=== PATIENT | male | born 1960 | race Caucasian/White ===

== ENCOUNTER 2020-02-23 09:00 | Outpatient (RCR) | payer OTHER, SELFPAY ==
[2020-02-04 11:27] VITALS: BP 129/71; PULSE 55; RESP 18; TEMP 36.6; BMI 39.2
--- NOTE | 2020-02-04 12:50 | PCM.WC.HP ---
(1) Ulcer of right lower extremity with fat layer exposed Status: Chronic Current Visit: Yes Code(s): L97.912 - Non-pressure chronic ulcer of unspecified part of right lower leg with fat layer exposed (2) Ulcer of left lower extremity with fat layer exposed Status: Chronic Current Visit: Yes Code(s): L97.922 - Non-pressure chronic ulcer of unspecified part of left lower leg with fat layer exposed (3) Chronic acquired lymphedema Status: Chronic Current Visit: Yes Code(s): I89.0 - Lymphedema, not elsewhere classified (4) Obesity (BMI 30-39.9) Status: Chronic Current Visit: Yes Code(s): E66.9 - Obesity, unspecified History of Present Illness Date of Service: 02/04/20 Chief Complaint: Bilateral lower extremity ulcers History of Wound: Mr. Chandler is a 59-year-old who presents to the wound center due to nonhealing bilateral lower extremity ulceration. Patient states that it is chronic however has noted worsening since May. Most significant worsening has been since October. Been staying at home due to the ongoing pandemic and has not been using his compression stockings like he typically did. Has applied no dressing as well. Reports drainage. Very largely sedentary and sleeps in a recliner. History of diabetes last A1c per record was 6.9. Feels well otherwise, denies chills, fever, nausea, vomiting or change in bowel habit. Started on clindamycin by his PCP but discontinued due to diarrhea. Past Medical History Past Medical History: Chronic Problems Ulcer of right lower extremity with fat layer exposed (Chronic) Ulcer of left lower extremity with fat layer exposed (Chronic) Chronic acquired lymphedema (Chronic) Obesity (BMI 30-39.9) (Chronic) Allergies/Adverse Reactions: Allergies No Known Allergies Allergy (Verified 02/04/20 11:18) Home Medications: Ambulatory Orders Medication Instructions Recorded Allopurinol [Zyloprim] 300 mg PO DAILY 02/04/20 Amlodipine [Norvasc] 10 mg PO DAILY 02/04/20 Atorvastatin Calcium [Lipitor] 10 mg PO QHS 02/04/20 Clonidine HCl 0.3 mg PO TID 02/04/20 Furosemide [Lasix] 40 mg PO DAILY 02/04/20 Linagliptin [Tradjenta] 5 mg PO DAILY 02/04/20 Losartan/Hydrochlorothiazide 1 tab PO DAILY 02/04/20 [Hyzaar 100-25 Tablet] Metformin HCl 1,000 mg PO BID 02/04/20 Metoprolol Succinate [Toprol Xl] 100 mg PO BID 02/04/20 [place]-3 Fatty Acids/Fish Oil [Fish 2 ea PO DAILY 02/04/20 Oil 1,000 mg Capsule] Quinapril HCl [Accupril] 40 mg PO DAILY 02/04/20 Spironolactone 25 mg PO BID 02/04/20 Smoking Status: Never smoker Review of Systems Constitutional: Denies: Anorexia, Weakness Eyes: Denies: Blurred vision, Pain, Redness HEENT: Denies: Difficulty Hearing, Difficulty Swallowing, Sinus Drainage, Sore Throat Cardiovascular: Denies: Chest Pain, Claudication, Chest Pressure, Chest Tightness Respiratory: Denies: Cough, Hemoptysis, Pleuritic Pain, Wheezing Gastrointestinal: Denies: Abdominal Pain, Hematemesis, Vomiting Genitourinary: Denies: Hematuria Skin: Denies: Jaundice - Physical Exam Vital Signs Temp Pulse Resp BP 98 F 55 L 18 129/71 H 02/04/20 11:27 02/04/20 11:27 02/04/20 11:27 02/04/20 11:27 General: Alert, Oriented x3, Cooperative, No apparent distress HEENT: Atraumatic, Normocephalic Oral: Moist Mucosa Neck: Supple Lungs: Normal air movement Abdomen: Non Tender, Obese Extremities: No cyanosis, Edema Skin: Ulcer/ Wound Wound Measurements and Assessment WC - Nurse 1 - General Ulcer Measurement Start: 02/04/20 11:16 Freq: Status: Active Protocol: Activity Type Activity Date Activity User E-Sign Co-Sign Detail Recorded Client Recorded Date Recorded By Document 02/04/20 11:27 [id number] 02/04/20 11:37 RB 02/04/20 11:27 Wound Center Nurse 1 [Ulcer Assessment] 2. RLE cluster -Combined with other wound No -Current Size (cm) - Length 35 -Current Size (cm) - Width 17 -Current Size (cm) - Depth 0.1 -Total Square Cm 595 -Photo Taken Yes -Tunneling No -Undermining/Tunneling No -Circular Undermining No -Exudate Amt Large -Exudate Type Serosanguineous -Wound Margin Thickened -Granulation Amt Medium (34-66%) -Granulation Quality [place] -Slough/Fibrin Yes -Necrosis Amt Medium (34-66%) -Necrotic Tissue Type Adherent Slough -Structure Exposed N/A -Texture (Chiquita-wound Skin Appearance) Assessed, Localized Edema -Moisture ([place]ita-wound Skin Appearance Assessed, ) Maceration -Color ([place]iquita-wound Skin Appearance) Assessed, Erythema -Temperature ([place]-wound Skin No Abnormality Appearance) (Pt Warm) -Tenderness on Palpation ([place]ita-wound No Skin Appearance) -Ulcer Cleansing Wound Cleanser -Foul Odor after Cleansing No -Anesthetic Used 4% Lidocaine Solution 1. LLE cluster -Combined with other wound No -Current Size (cm) - Length 35 -Current Size (cm) - Width 19 -Current Size (cm) - Depth 0.1 -Total Square Cm 665 -Photo Taken Yes -Tunneling No -Undermining/Tunneling No -Circular Undermining No -Exudate Amt Large -Exudate Type Serosanguineous -Wound Margin Thickened -Granulation Amt Medium (34-66%) -Granulation Quality [place] -Slough/Fibrin Yes -Necrosis Amt Small (1-33%) -Necrotic Tissue Type Adherent Slough -Structure Exposed N/A -Texture ([place]-wound Skin Appearance) Assessed, Localized Edema -Moisture ([place]-wound Skin Appearance Assessed, ) Maceration -Color ([place]-wound Skin Appearance) Assessed, Erythema, Hemosiderin Staining -Temperature ([place]-wound Skin No Abnormality Appearance) (Pt Warm) -Tenderness on Palpation ([place]iquita-wound No Skin Appearance) -Ulcer Cleansing Wound Cleanser -Foul Odor after Cleansing No -Anesthetic Used 4% Lidocaine Solution [Edema Assessment] -Lower Limb Edema Present Yes -Right Calf (cm) 51 -Right Ankle (cm) 39 -Right Foot (cm) 26 -Left Calf (cm) 58 -Left Ankle (cm) 39 -Left Foot (cm) 26 WC - Nurse 2 - General Ulcer CM Notes Start: 02/04/20 11:16 Freq: Status: Active Protocol: Activity Type Activity Date Activity User E-Sign Co-Sign Detail Recorded Client Recorded Date Recorded By Document 02/04/20 11:58 MW [id number] 02/04/20 12:11 MW 02/04/20 11:58 Wound Center Nurse 2 [Procedure/Treatment] 2. RLE cluster -Time 12:02 -Correct Patient Yes -Correct Side, Site, Position Yes -Correct Procedure Yes -Procedure Performed Yes -Type of Procedure Debridement -Clinical Debridement Subcutaneous -Post Debridement Size (cm) - Length 19.0 -Post Debridement Size (cm) - Width 35.0 -Post Debridement Size (cm) - Depth 0.1 -Total Square Cm 665.00 -Wound/Ulcer Outcome Not Healed -Ulcer Cleansing Rinsed/ Irrigated with Saline -Foul Odor after Cleansing No -Bioengineered Tissue No -Bleeding Controlled with Pressure -Offloading No -Treatment Response Procedure Tolerated Well 1. LLE cluster -Time 12:02 -Correct Patient Yes -Correct Side, Site, Position Yes -Correct Procedure Yes -Procedure Performed Yes -Type of Procedure Debridement -Clinical Debridement Subcutaneous -Post Debridement Size (cm) - Length 16.0 -Post Debridement Size (cm) - Width 30.0 -Post Debridement Size (cm) - Depth 0.1 -Total Square Cm 480.00 -Wound/Ulcer Outcome Not Healed -Ulcer Cleansing Rinsed/ Irrigated with Saline -Foul Odor after Cleansing No -Bioengineered Tissue No -Bleeding Controlled with Pressure -Offloading No -Treatment Response Procedure Tolerated Well [See Physician Procedure note for Specifics] Pain Scale: 0-10 Numeric [Pain] -Is Patient Pain Free? Yes Musculoskeletal: No Muscle Wasting Neurological: Cranial nerves II-XII grossly intact Psych/Mental Status: Normal Affect Debridement Note Post-Debridement Measurements/Treatment WC - Nurse 2 - General Ulcer CM Notes Start: 02/04/20 11:16 Freq: Status: Active Protocol: Activity Type Activity Date Activity User E-Sign Co-Sign Detail Recorded Client Recorded Date Recorded By Document 02/04/20 11:58 MW [id number] 02/04/20 12:11 MW 02/04/20 11:58 Wound Center Nurse 2 2. RLE cluster -Time 12:02 -Correct Patient Yes -Correct Side, Site, Position Yes -Correct Procedure Yes -Procedure Performed Yes -Type of Procedure Debridement -Clinical Debridement Subcutaneous -Post Debridement Size (cm) - Length 19.0 -Post Debridement Size (cm) - Width 35.0 -Post Debridement Size (cm) - Depth 0.1 -Total Square Cm 665.00 -Wound/Ulcer Outcome Not Healed -Ulcer Cleansing Rinsed/ Irrigated with Saline -Foul Odor after Cleansing No -Bioengineered Tissue No -Bleeding Controlled with Pressure -Offloading No -Treatment Response Procedure Tolerated Well 1. LLE cluster -Time 12:02 -Correct Patient Yes -Correct Side, Site, Position Yes -Correct Procedure Yes -Procedure Performed Yes -Type of Procedure Debridement -Clinical Debridement Subcutaneous -Post Debridement Size (cm) - Length 16.0 -Post Debridement Size (cm) - Width 30.0 -Post Debridement Size (cm) - Depth 0.1 -Total Square Cm 480.00 -Wound/Ulcer Outcome Not Healed -Ulcer Cleansing Rinsed/ Irrigated with Saline -Foul Odor after Cleansing No -Bioengineered Tissue No -Bleeding Controlled with Pressure -Offloading No -Treatment Response Procedure Tolerated Well Pain Scale: 0-10 Numeric Is Patient Pain Free? Yes Wound debrided: Right lower extremity cluster Type of Debridement: Excisional debridement Anesthesia Used: 4% Lidocaine Solution Depth: Down to and including healthy tissue, in the subcutaneous layer Percentage of wound debrided: 100 Instrument Used: 7mm curette Tissue Removed: Slough and devitalized tissue Severity: Fat Layer Exposed Amount of bleeding with debridement: Mild Patient tolerated procedure well - Additional Wound Wound debrided: Left lower extremity cluster Type of Debridement: Excisional debridement Anesthesia Used: 4% Lidocaine Solution Depth: Down to and including healthy tissue, in the subcutaneous layer Percentage of wound debrided: 100 Instrument Used: 7mm curette Tissue Removed: Slough and devitalized tissue Severity: Fat Layer Exposed Amount of bleeding with debridement: Mild Bleeding Controlled with: Pressure Patient tolerated procedure: Patient tolerated procedure well Assessment/Plan Active Problems Ulcer of right lower extremity with fat layer exposed (Chronic) Ulcer of left lower extremity with fat layer exposed (Chronic) Chronic acquired lymphedema (Chronic) Obesity (BMI 30-39.9) (Chronic) Assessment: Nonhealing bilateral lower extremity ulcer secondary to chronic lymphedema. Plan: Debridement done as documented above. Procedure was well-tolerated. Cultures taken. Aquacel extra to both lower extremities and 3M wrap for edema management. Lengthy discussion had with patient and leg elevation, exercise, increase protein intake and optimal diabetes control. His questions were answered and he was advised to call with any further questions or concerns. Follow-up on Saturday for nurse visit and on with me. This note was generated with [employer] software. It may contain incorrect words, spelling, and punctuation that were not noted in checking the note before signing. Multi Select Codes - Visit Charges Office Visit/Consults: 74533 OV L4 New - Integumentary Integumentary CPT Codes: 06900 Hallie subq tissue 20 sq cm/< - Additional square centimeter debrided. Please refer to clinical note.
[2020-02-08 08:36] VITALS: BP 118/88; PULSE 78; RESP 18; TEMP 36.6; BMI 39.2
[2020-02-11 08:22] VITALS: BP 127/61; PULSE 93; RESP 18; TEMP 36.6; BMI 39.2
--- NOTE | 2020-02-11 09:30 | PN.PCM_ITS ---
(1) Ulcer of right lower extremity with fat layer exposed Status: Chronic Current Visit: Yes Code(s): L97.912 - Non-pressure chronic ulcer of unspecified part of right lower leg with fat layer exposed (2) Ulcer of left lower extremity with fat layer exposed Status: Chronic Current Visit: Yes Code(s): L97.922 - Non-pressure chronic ulcer of unspecified part of left lower leg with fat layer exposed (3) Chronic acquired lymphedema Status: Chronic Current Visit: Yes Code(s): I89.0 - Lymphedema, not els ewhere classified (4) Obesity (BMI 30-39.9) Status: Chronic Current Visit: Yes Code(s): E66.9 - Obesity, unspecified Type of Wound Date of Service: 02/11/20 Chief Complaint: Bilateral lower extremity ulcers History of Wound: Mr. Chandler is a 59-year-old who presents to the wound center due to nonhealing bilateral lower extremity ulceration. Patient states that it is chronic however has noted worsening since May. Most significant worsening has been since October. Been staying at home due to the ongoing pandemic and has not been using his compression stockings like he typically did. Has applied no dressing as well. Reports drainage. Very largely sedentary and sleeps in a recliner. History of diabetes last A1c per record was 6.9. Feels well otherwise, denies chills, fever, nausea, vomiting or change in bowel habit. Started on clindamycin by his PCP but discontinued due to diarrhea. Progress of Wound: No new concerns. Tolerated 3M wraps. Edema with significant improvement. - Physical Exam Vital Signs Temp Pulse Resp BP 98 F 93 18 127/61 H 02/11/20 08:22 02/11/20 08:22 02/11/20 08:22 02/11/20 08:22 General: Alert, Oriented x3, Cooperative, No apparent distress HEENT: Atraumatic, Normocephalic Oral: Moist Mucosa Neck: Supple Lungs: Normal air movement Abdomen: Non Tender, Obese Extremities: No cyanosis, Edema Skin: Ulcer/ Wound Wound Measurements and Assessment WC - Nurse 1 - General Ulcer Measurement Start: 02/04/20 11:16 Freq: Status: Active Protocol: Activity Type Activity Date Activity User E-Sign Co-Sign Detail Recorded Client Recorded Date Recorded By Document 02/08/20 08:40 [id number] 02/08/20 08:44 CS Document 02/11/20 08:22 BS [id number] 02/11/20 08:32 BS 02/08/20 02/11/20 08:40 08:22 [Ulcer Assessment] 2. RLE cluster -Current Size (cm) - Length 41 -Current Size (cm) - Width 12 -Current Size (cm) - Depth 0.1 -Total Square Cm 492 -Photo Taken No -Exudate Amt Large -Exudate Type Yellow/Green -Wound Margin Indistinct, Non -Visible -Granulation Amt Medium (34-66%) -Granulation Quality [place],Red -Necrosis Amt Medium (34-66%) -Necrotic Tissue Type Adherent Slough -Structure Exposed N/A -Texture ([place]iquita-wound Skin Appearance) Excoriation -Moisture ([place]iquita-wound Skin Appearance Weeping ) -Color ([place]ita-wound Skin Appearance) Erythema, Hemosiderin Staining -Temperature ([place]-wound Skin No Abnormality Appearance) (Pt Warm) -Tenderness on Palpation ([place]-wound No Skin Appearance) -Ulcer Cleansing Wound Cleanser -Foul Odor after Cleansing Yes -Anesthetic Used 4% Lidocaine Solution 1. LLE cluster -Current Size (cm) - Length 40 -Current Size (cm) - Width 7.5 -Current Size (cm) - Depth 0.1 -Total Square Cm 300.0 -Photo Taken No -Exudate Amt Large -Exudate Type Yellow/Green -Wound Margin Indistinct, Non -Visible -Granulation Amt Medium (34-66%) -Granulation Quality [place] -Necrosis Amt Medium (34-66%) -Necrotic Tissue Type Adherent Slough -Structure Exposed N/A -Texture ([place]iquita-wound Skin Appearance) Excoriation -Moisture ([place]iquita-wound Skin Appearance Weeping ) -Color ([place]iquita-wound Skin Appearance) Erythema, Hemosiderin Staining -Temperature ([place]-wound Skin No Abnormality Appearance) (Pt Warm) -Tenderness on Palpation ([place]iquita-wound No Skin Appearance) -Ulcer Cleansing Wound Cleanser -Foul Odor after Cleansing Yes -Anesthetic Used 4% Lidocaine Solution Wound Center Nurse 1 [Edema Assessment] -Lower Limb Edema Present Yes -Right Calf (cm) 49.5 50 -Point of measurement (cm from the 33 medial instep) -Right Ankle (cm) 32.5 6 -Point of Measurement (cm from the 29.5 medial instep) -Left Calf (cm) 47.5 50.5 -Point of measurement (cm from the 35 medial instep) -Left Ankle (cm) 29.2 29.6 -Point of Measurement (cm from the 6 medial instep) Musculoskeletal: No Muscle Wasting Neurological: Cranial nerves II-XII grossly intact Psych/Mental Status: Normal Affect Debridement Note Post-Debridement Measurements/Treatment WC - Nurse 2 - General Ulcer CM Notes Start: 02/04/20 11:16 Freq: Status: Active Protocol: Activity Type Activity Date Activity User E-Sign Co-Sign Detail Recorded Client Recorded Date Recorded By Document 02/04/20 11:58 MW [id number] 02/04/20 12:11 MW 02/04/20 11:58 Wound Center Nurse 2 2. RLE cluster -Time 12:02 -Correct Patient Yes -Correct Side, Site, Position Yes -Correct Procedure Yes -Procedure Performed Yes -Type of Procedure Debridement -Clinical Debridement Subcutaneous -Post Debridement Size (cm) - Length 19.0 -Post Debridement Size (cm) - Width 35.0 -Post Debridement Size (cm) - Depth 0.1 -Total Square Cm 665.00 -Wound/Ulcer Outcome Not Healed -Ulcer Cleansing Rinsed/ Irrigated with Saline -Foul Odor after Cleansing No -Bioengineered Tissue No -Bleeding Controlled with Pressure -Offloading No -Treatment Response Procedure Tolerated Well 1. LLE cluster -Time 12:02 -Correct Patient Yes -Correct Side, Site, Position Yes -Correct Procedure Yes -Procedure Performed Yes -Type of Procedure Debridement -Clinical Debridement Subcutaneous -Post Debridement Size (cm) - Length 16.0 -Post Debridement Size (cm) - Width 30.0 -Post Debridement Size (cm) - Depth 0.1 -Total Square Cm 480.00 -Wound/Ulcer Outcome Not Healed -Ulcer Cleansing Rinsed/ Irrigated with Saline -Foul Odor after Cleansing No -Bioengineered Tissue No -Bleeding Controlled with Pressure -Offloading No -Treatment Response Procedure Tolerated Well Pain Scale: 0-10 Numeric Is Patient Pain Free? Yes Wound debrided: Left lower extremity cluster Type of Debridement: Excisional debridement Anesthesia Used: 4% Lidocaine Solution Depth: Down to and including healthy tissue, in the subcutaneous layer Percentage of wound debrided: 100 Instrument Used: 7mm curette Tissue Removed: Slough and devitalized tissue Severity: Fat Layer Exposed Amount of bleeding with debridement: Mild Bleeding Controlled with: Pressure Patient tolerated procedure well - Additional Wound Wound debrided: Right lower extremity cluster Type of Debridement: Excisional debridement Anesthesia Used: 4% Lidocaine Solution Depth: Down to and including healthy tissue, in the subcutaneous layer Percentage of wound debrided: 100 Instrument Used: 7mm curette Tissue Removed: Slough and devitalized tissue Severity: Fat Layer Exposed Amount of bleeding with debridement: Mild Bleeding Controlled with: Pressure Patient tolerated procedure: Patient tolerated procedure well Assessment/Plan Active Problems Ulcer of right lower extremity with fat layer exposed (Chronic) Ulcer of left lower extremity with fat layer exposed (Chronic) Chronic acquired lymphedema (Chronic) Obesity (BMI 30-39.9) (Chronic) Assessment: Nonhealing bilateral lower extremity ulcer secondary to chronic lymphedema. Plan: Debridement done as documented above. Procedure was well-tolerated. Improving. No new concerns today. Cultures reviewed, started on ciprofloxacin and Flagyl per sensitivity. Continue Aquacel, absorptive padding and 3M wraps. Follow-up on Saturday for nurse visit. Continue leg elevation, exercise as tolerated and optimal diabetes control. His questions were answered and he was advised to call with any further questions or concerns. Follow-up on Saturday for nurse visit and on with me. This note was generated with [employer] dictation software. It may contain incorrect words, spelling, and punctuation that were not noted in checking the note before signing. [id number]: [id number] Hallie subq tissue 20 sq cm/< Add On Codes: [id number] Hallie subq tissue add-on - Additional square centimeters debrided, please refer to clinical note.
[2020-02-15 10:46] VITALS: BP 125/72; PULSE 85; RESP 18; TEMP 36.6; BMI 39.2
[2020-02-18 10:03] VITALS: BP 124/71; PULSE 72; RESP 18; TEMP 36.4; BMI 39.2
--- NOTE | 2020-02-18 13:09 | PN.PCM_ITS ---
(1) Ulcer of right lower extremity with fat layer exposed Status: Chronic Current Visit: Yes Code(s): L97.912 - Non-pressure chronic ulcer of unspecified part of right lower leg with fat layer exposed (2) Ulcer of left lower extremity with fat layer exposed Status: Chronic Current Visit: Yes Code(s): L97.922 - Non-pressure chronic ulcer of unspecified part of left lower leg with fat layer exposed (3) Chronic acquired lymphedema Status: Chronic Current Visit: Yes Code(s): I89.0 - Lymphedema, not els ewhere classified (4) Obesity (BMI 30-39.9) Status: Chronic Current Visit: Yes Code(s): E66.9 - Obesity, unspecified Type of Wound Date of Service: 02/18/20 Chief Complaint: Bilateral lower extremity ulcers History of Wound: Mr. Chandler is a 59-year-old who presents to the wound center due to nonhealing bilateral lower extremity ulceration. Patient states that it is chronic however has noted worsening since May. Most significant worsening has been since October. Been staying at home due to the ongoing pandemic and has not been using his compression stockings like he typically did. Has applied no dressing as well. Reports drainage. Very largely sedentary and sleeps in a recliner. History of diabetes last A1c per record was 6.9. Feels well otherwise, denies chills, fever, nausea, vomiting or change in bowel habit. Started on clindamycin by his PCP but discontinued due to diarrhea. Progress of Wound: Improving. No new concerns at this time. - Physical Exam Vital Signs Temp Pulse Resp BP 97.6 F L 72 18 124/71 H 02/18/20 10:03 02/18/20 10:03 02/18/20 10:03 02/18/20 10:03 General: Alert, Oriented x3, Cooperative, No apparent distress HEENT: Atraumatic, Normocephalic Oral: Moist Mucosa Neck: Supple Lungs: Normal air movement Abdomen: Non Tender, Obese Extremities: No cyanosis, Edema Skin: Ulcer/ Wound Wound Measurements and Assessment WC - Nurse 1 - General Ulcer Measurement Start: 02/04/20 11:16 Freq: Status: Active Protocol: Activity Type Activity Date Activity User E-Sign Co-Sign Detail Recorded Client Recorded Date Recorded By Document 02/18/20 10:03 RB [id number] 02/18/20 10:11 02/18/20 10:03 Wound Center Nurse 1 [Ulcer Assessment] 2. RLE cluster -Combined with other wound No -Current Size (cm) - Length 3.4 -Current Size (cm) - Width 13.3 -Current Size (cm) - Depth 0.2 -Total Square Cm 45.22 -Tunneling No -Undermining/Tunneling No -Circular Undermining No -Exudate Amt Medium -Exudate Type Serosanguineous -Wound Margin Flat & Intact -Granulation Amt Medium (34-66%) -Granulation Quality [place] -Slough/Fibrin Yes -Necrosis Amt Medium (34-66%) -Necrotic Tissue Type Adherent Slough -Structure Exposed N/A -Texture (Chiquita-wound Skin Appearance) Assessed -Moisture (Chiquita-wound Skin Appearance Maceration,Dry/ ) Scaly -Color (Chiquita-wound Skin Appearance) Erythema -Temperature (Chiquita-wound Skin No Abnormality Appearance) (Pt Warm) -Tenderness on Palpation (Chiquita-wound No Skin Appearance) -Ulcer Cleansing Wound Cleanser -Foul Odor after Cleansing No -Anesthetic Used 4% Lidocaine Solution 1. LLE cluster -Combined with other wound No -Current Size (cm) - Length 9.5 -Current Size (cm) - Width 8.4 -Current Size (cm) - Depth 0.2 -Total Square Cm 79.80 -Tunneling No -Undermining/Tunneling No -Circular Undermining No -Exudate Amt Medium -Exudate Type Serosanguineous -Wound Margin Flat & Intact -Granulation Amt Medium (34-66%) -Granulation Quality [place] -Slough/Fibrin Yes -Necrosis Amt Small (1-33%) -Necrotic Tissue Type Adherent Slough -Structure Exposed N/A -Texture (Chiquita-wound Skin Appearance) Assessed -Moisture (Chiquita-wound Skin Appearance Assessed, ) Maceration,Dry/ Scaly -Color (Chiquita-wound Skin Appearance) Erythema -Temperature (Chiquita-wound Skin No Abnormality Appearance) (Pt Warm) -Tenderness on Palpation (Chiquita-wound No Skin Appearance) -Ulcer Cleansing Wound Cleanser -Foul Odor after Cleansing No -Anesthetic Used 4% Lidocaine Solution [Edema Assessment] -Lower Limb Edema Present Yes -Right Calf (cm) 47.8 -Right Ankle (cm) 31.1 -Left Calf (cm) 48 -Left Ankle (cm) 29.2 WC - Nurse 2 - General Ulcer CM Notes Start: 02/04/20 11:16 Freq: Status: Active Protocol: Activity Type Activity Date Activity User E-Sign Co-Sign Detail Recorded Client Recorded Date Recorded By Document 02/18/20 10:29 DV [id number] 02/18/20 10:35 DV 02/18/20 10:29 Wound Center Nurse 2 [Procedure/Treatment] 2. RLE cluster -Time 10:30 -Correct Patient Yes -Correct Side, Site, Position Yes -Correct Procedure Yes -Procedure Performed Yes -Type of Procedure Debridement -Clinical Debridement Subcutaneous -Post Debridement Size (cm) - Length 8.0 -Post Debridement Size (cm) - Width 15.0 -Post Debridement Size (cm) - Depth 0.1 -Total Square Cm 120.00 -Wound/Ulcer Outcome Not Healed -Ulcer Cleansing Rinsed/ Irrigated with Saline -Foul Odor after Cleansing No -Bioengineered Tissue No -Bleeding Controlled with Pressure -Offloading No -Treatment Response Procedure Tolerated Well 1. LLE cluster -Time 10:31 -Correct Patient Yes -Correct Side, Site, Position Yes -Correct Procedure Yes -Procedure Performed Yes -Type of Procedure Debridement -Clinical Debridement Subcutaneous -Post Debridement Size (cm) - Length 9.5 -Post Debridement Size (cm) - Width 14.0 -Post Debridement Size (cm) - Depth 0.1 -Total Square Cm 133.00 -Wound/Ulcer Outcome Not Healed -Ulcer Cleansing Rinsed/ Irrigated with Saline -Foul Odor after Cleansing No -Bioengineered Tissue No -Bleeding Controlled with Pressure -Offloading No -Treatment Response Procedure Tolerated Well [See Physician Procedure note for Specifics] Pain Scale: 0-10 Numeric [Pain] -Is Patient Pain Free? Yes Musculoskeletal: No Muscle Wasting Neurological: Cranial nerves II-XII grossly intact Psych/Mental Status: Normal Affect Debridement Note Post-Debridement Measurements/Treatment WC - Nurse 2 - General Ulcer CM Notes Start: 02/04/20 11:16 Freq: Status: Active Protocol: Activity Type Activity Date Activity User E-Sign Co-Sign Detail Recorded Client Recorded Date Recorded By Document 02/04/20 11:58 MW [id number] 02/04/20 12:11 MW Document 02/11/20 09:35 PL [id number] 02/11/20 09:37 PL Document 02/18/20 10:29 DV [id number] 02/18/20 10:35 DV 02/04/20 02/11/20 02/18/20 11:58 09:35 10:29 Wound Center Nurse 2 2. [facility] cluster -Time 12:02 08:40 10:30 -Correct Patient Yes Yes Yes -Correct Side, Site, Position Yes Yes Yes -Correct Procedure Yes Yes Yes -Procedure Performed Yes Yes Yes -Type of Procedure Debridement Debridement Debridement -Clinical Debridement Subcutaneous Subcutaneous Subcutaneous -Post Debridement Size (cm) - Length 19.0 10 8.0 -Post Debridement Size (cm) - Width 35.0 28 15.0 -Post Debridement Size (cm) - Depth 0.1 0.1 0.1 -Total Square Cm 665.00 280 120.00 -Wound/Ulcer Outcome Not Healed Not Healed Not Healed -Ulcer Cleansing Rinsed/ Rinsed/ Rinsed/ Irrigated with Irrigated with Irrigated with Saline Saline Saline -Foul Odor after Cleansing No No No -Bioengineered Tissue No No -Bleeding Controlled with Pressure Pressure Pressure -Offloading No No -Treatment Response Procedure Procedure Procedure Tolerated Well Tolerated Well Tolerated Well 1. [facility] cluster -Time 12: 08:40 10:31 -Correct Patient Yes Yes Yes -Correct Side, Site, Position Yes Yes Yes -Correct Procedure Yes Yes Yes -Procedure Performed Yes Yes Yes -Type of Procedure Debridement Debridement Debridement -Clinical Debridement Subcutaneous Subcutaneous Subcutaneous -Post Debridement Size (cm) - Length 16.0 10 9.5 -Post Debridement Size (cm) - Width 30.0 25 14.0 -Post Debridement Size (cm) - Depth 0.1 0.1 0.1 -Total Square Cm 480.00 250 133.00 -Wound/Ulcer Outcome Not Healed Not Healed Not Healed -Ulcer Cleansing Rinsed/ Rinsed/ Rinsed/ Irrigated with Irrigated with Irrigated with Saline Saline Saline -Foul Odor after Cleansing No No No -Bioengineered Tissue No No -Bleeding Controlled with Pressure Pressure Pressure -Offloading No No -Treatment Response Procedure Procedure Procedure Tolerated Well Tolerated Well Tolerated Well Pain Scale: 0-10 Numeric Is Patient Pain Free? Yes Yes Yes Wound debrided: Right lower extremity cluster Type of Debridement: Excisional debridement Anesthesia Used: 4% Lidocaine Solution Depth: Down to and including healthy tissue, in the subcutaneous layer Percentage of wound debrided: 100 Instrument Used: 7mm curette Tissue Removed: Slough and devitalized tissue Severity: Fat Layer Exposed Amount of bleeding with debridement: Mild Bleeding Controlled with: Pressure Patient tolerated procedure well - Additional Wound Wound debrided: Left lower extremity cluster Type of Debridement: Excisional debridement Anesthesia Used: 4% Lidocaine Solution Depth: Down to and including healthy tissue, in the subcutaneous layer Percentage of wound debrided: 100 Instrument Used: 5mm curette Tissue Removed: Slough and devitalized tissue Severity: Fat Layer Exposed Amount of bleeding with debridement: Mild Bleeding Controlled with: Pressure Patient tolerated procedure: Patient tolerated procedure well Assessment/Plan Active Problems Ulcer of right lower extremity with fat layer exposed (Chronic) Ulcer of left lower extremity with fat layer exposed (Chronic) Chronic acquired lymphedema (Chronic) Obesity (BMI 30-39.9) (Chronic) Assessment: Nonhealing bilateral lower extremity ulcer secondary to chronic lymphedema. Plan: Debridement done as documented above. Procedure was well-tolerated. Improving. No new concerns today. Continue Aquacel, ABD and 3M wraps. Follow- up on Saturday for nurse visit. Continue leg elevation, exercise as tolerated and optimal diabetes control. His questions were answered and he was advised to call with any further questions or concerns. Follow-up on Saturday for nurse visit and on with me. This note was generated with [employer] dictation software. It may contain incorrect words, spelling, and punctuation that were not noted in checking the note before signing. [id number]: [id number] Hallie subq tissue 20 sq cm/< Add On Codes: [id number] Hallie subq tissue add-on - Additional square centimeters debrided, please refer to clinical note.
[2020-02-23 09:16] VITALS: BP 146/88; PULSE 108; RESP 20; TEMP 36.2; BMI 39.2
== END 2020-02-23 23:59 ==
LOC: WC 09:00
PROVIDERS: PCP Family Medicine; Visit Provider Internal Medicine
DX: E11.621 Type 2 diabetes mellitus with foot ulcer (principal); L97.812 Non-pressure chronic ulcer of other part of right lower leg with fat layer exposed; E66.9 Obesity, unspecified; L97.822 Non-pressure chronic ulcer of other part of left lower leg with fat layer exposed; I89.0 Lymphedema, not elsewhere classified; Z68.39 Body mass index [BMI] 39.0-39.9, adult; Z79.899 Other long term (current) drug therapy; Z79.84 Long term (current) use of oral hypoglycemic drugs
CPT/HCPCS: 11042; 11045; 29581; 87070; 87075; 87077; 87186; 87205; 99203; 99212; 99213; G0463

== ENCOUNTER 2020-03-03 10:30 | Outpatient (RCR) | payer OTHER, SELFPAY ==
[2020-02-24 00:37] VITALS: BP 146/88; PULSE 108; RESP 20; TEMP 36.2
[2020-02-25 08:21] VITALS: BP 146/74; PULSE 97; RESP 20; TEMP 36.6; BMI 39.2
--- NOTE | 2020-02-25 10:09 | PCM.WC.PN ---
(1) Chronic acquired lymphedema Status: Chronic Current Visit: Yes Code(s): I89.0 - Lymphedema, not elsewhere classified (2) Ulcer of left lower extremity with fat layer exposed Status: Chronic Current Visit: Yes Code(s): L97.922 - Non-pressure chronic ulcer of unspecified part of left lower leg with fat layer exposed (3) Ulcer of right lower extremity with fat layer exposed Status: Chronic Current Visit: Yes Code(s): L97.912 - Non-pressure chronic ulcer of unspecified part of right lower leg with fat layer exposed (4) Obesity (BMI 30-39.9) Status: Chronic Current Visit: Yes Code(s): E66.9 - Obesity, unspecified Type of Wound Date of Service: 02/25/20 Chief Complaint: Bilateral lower extremity ulcers History of Wound: Mr. Chandler is a 59-year-old who presents to the wound center due to nonhealing bilateral lower extremity ulceration. Patient states that it is chronic however has noted worsening since May. Most significant worsening has been since October. Been staying at home due to the ongoing pandemic and has not been using his compression stockings like he typically did. Has applied no dressing as well. Reports drainage. Very largely sedentary and sleeps in a recliner. History of diabetes last A1c per record was 6.9. Feels well otherwise, denies chills, fever, nausea, vomiting or change in bowel habit. Started on clindamycin by his PCP but discontinued due to diarrhea. Progress of Wound: Improving. No new concerns at this time. - Physical Exam Vital Signs Temp Pulse Resp BP 97.8 F 97 20 H 146/74 H 02/25/20 08:21 02/25/20 08:21 02/25/20 08:21 02/25/20 08:21 General: Alert, Oriented x3, Cooperative, No apparent distress HEENT: Atraumatic, Normocephalic Oral: Moist Mucosa Neck: Supple Lungs: Normal air movement Abdomen: Non Tender, Obese Extremities: No cyanosis, Edema Skin: Ulcer/ Wound Wound Measurements and Assessment WC - Nurse 1 - General Ulcer Measurement Start: 02/25/20 08:21 Freq: Status: Active Protocol: Activity Type Activity Date Activity User E-Sign Co-Sign Detail Recorded Client Recorded Date Recorded By Document 02/25/20 08:21 DL [id number] 02/25/20 08:35 DL 02/25/20 08:21 Wound Center Nurse 1 [Ulcer Assessment] 2. RLE cluster -Current Size (cm) - Length 3 -Current Size (cm) - Width 7.2 -Current Size (cm) - Depth 0.2 -Total Square Cm 21.6 -Photo Taken No -Exudate Amt Small -Exudate Type Serosanguineous -Wound Margin Indistinct, Non -Visible -Granulation Amt Medium (34-66%) -Granulation Quality [place] -Necrosis Amt Medium (34-66%) -Necrotic Tissue Type Adherent Slough -Structure Exposed N/A -Texture (Chiquita-wound Skin Appearance) Localized Edema ,Scarring -Moisture (Chiquita-wound Skin Appearance Dry/Scaly ) -Color (Chiquita-wound Skin Appearance) Hemosiderin Staining -Temperature (Chiquita-wound Skin No Abnormality Appearance) (Pt Warm) -Tenderness on Palpation (Chiquita-wound No Skin Appearance) -Ulcer Cleansing Wound Cleanser -Foul Odor after Cleansing No -Anesthetic Used 4% Lidocaine Solution 1. LLE cluster -Current Size (cm) - Length 8 -Current Size (cm) - Width 7 -Current Size (cm) - Depth 0.2 -Total Square Cm 56 -Photo Taken No -Exudate Amt Small -Exudate Type Serosanguineous -Wound Margin Indistinct, Non -Visible -Granulation Amt Large (67-100%) -Granulation Quality [place] -Necrosis Amt Small (1-33%) -Necrotic Tissue Type Adherent Slough -Structure Exposed N/A -Texture (Chiquita-wound Skin Appearance) Localized Edema ,Scarring -Moisture (Chiquita-wound Skin Appearance Dry/Scaly ) -Color (Chiquita-wound Skin Appearance) Hemosiderin Staining -Temperature (Chiquita-wound Skin No Abnormality Appearance) (Pt Warm) -Tenderness on Palpation (Chiquita-wound No Skin Appearance) -Ulcer Cleansing Wound Cleanser -Foul Odor after Cleansing No -Anesthetic Used 4% Lidocaine Solution [Edema Assessment] -Right Calf (cm) 45 -Right Ankle (cm) 29 -Left Calf (cm) 45 -Left Ankle (cm) 27.8 WC - Nurse 2 - General Ulcer CM Notes Start: 02/25/20 08:21 Freq: Status: Active Protocol: Activity Type Activity Date Activity User E-Sign Co-Sign Detail Recorded Client Recorded Date Recorded By Document 07/02/20 08:57 MW [id number] 02/25/20 08:59 MW 02/25/20 08:57 Wound Center Nurse 2 [Procedure/Treatment] 2. RLE cluster -Time 08:58 -Correct Patient Yes -Correct Side, Site, Position Yes -Correct Procedure Yes -Procedure Performed Yes -Type of Procedure Debridement -Clinical Debridement Selective -Post Debridement Size (cm) - Length 4.0 -Post Debridement Size (cm) - Width 6.0 -Post Debridement Size (cm) - Depth 0.1 -Total Square Cm 24.00 -Wound/Ulcer Outcome Not Healed -Ulcer Cleansing Rinsed/ Irrigated with Saline -Foul Odor after Cleansing No -Bioengineered Tissue No -Bleeding Controlled with Pressure -Offloading No -Treatment Response Procedure Tolerated Well 1. LLE cluster -Time 08:59 -Correct Patient Yes -Correct Side, Site, Position Yes -Correct Procedure Yes -Procedure Performed Yes -Type of Procedure Debridement -Clinical Debridement Subcutaneous -Post Debridement Size (cm) - Length 5.0 -Post Debridement Size (cm) - Width 6.0 -Post Debridement Size (cm) - Depth 0.1 -Total Square Cm 30.00 -Wound/Ulcer Outcome Not Healed -Ulcer Cleansing Rinsed/ Irrigated with Saline -Foul Odor after Cleansing No -Bioengineered Tissue No -Bleeding Controlled with Pressure -Offloading No -Treatment Response Procedure Tolerated Well [See Physician Procedure note for Specifics] Pain Scale: 0-10 Numeric [Pain] -Is Patient Pain Free? Yes Musculoskeletal: No Muscle Wasting Neurological: Cranial nerves II-XII grossly intact Psych/Mental Status: Normal Affect Debridement Note Post-Debridement Measurements/Treatment WC - Nurse 2 - General Ulcer CM Notes Start: 02/25/20 08:21 Freq: Status: Active Protocol: Activity Type Activity Date Activity User E-Sign Co-Sign Detail Recorded Client Recorded Date Recorded By Document 02/25/20 08:57 MW [id number] 02/25/20 08:59 MW 02/25/20 08:57 Wound Center Nurse 2 2. RLE cluster -Time 08:58 -Correct Patient Yes -Correct Side, Site, Position Yes -Correct Procedure Yes -Procedure Performed Yes -Type of Procedure Debridement -Clinical Debridement Selective -Post Debridement Size (cm) - Length 4.0 -Post Debridement Size (cm) - Width 6.0 -Post Debridement Size (cm) - Depth 0.1 -Total Square Cm 24.00 -Wound/Ulcer Outcome Not Healed -Ulcer Cleansing Rinsed/ Irrigated with Saline -Foul Odor after Cleansing No -Bioengineered Tissue No -Bleeding Controlled with Pressure -Offloading No -Treatment Response Procedure Tolerated Well 1. LLE cluster -Time 08:59 -Correct Patient Yes -Correct Side, Site, Position Yes -Correct Procedure Yes -Procedure Performed Yes -Type of Procedure Debridement -Clinical Debridement Subcutaneous -Post Debridement Size (cm) - Length 5.0 -Post Debridement Size (cm) - Width 6.0 -Post Debridement Size (cm) - Depth 0.1 -Total Square Cm 30.00 -Wound/Ulcer Outcome Not Healed -Ulcer Cleansing Rinsed/ Irrigated with Saline -Foul Odor after Cleansing No -Bioengineered Tissue No -Bleeding Controlled with Pressure -Offloading No -Treatment Response Procedure Tolerated Well Pain Scale: 0-10 Numeric Is Patient Pain Free? Yes Wound debrided: Right lower extremity cluster Type of Debridement: Selective debridement Anesthesia Used: 4% Lidocaine Solution Depth: Down to and including healthy tissue Percentage of wound debrided: 100 Instrument Used: 5mm curette Tissue Removed: Slough and devitalized tissue Severity: Fat Layer Exposed Amount of bleeding with debridement: Mild Bleeding Controlled with: Pressure Patient tolerated procedure well - Additional Wound Wound debrided: Lower extremity cluster Type of Debridement: Selective debridement Anesthesia Used: 4% Lidocaine Solution Depth: Down to and including healthy tissue Percentage of wound debrided: 100 Instrument Used: 5mm curette Tissue Removed: Slough and devitalized tissue Severity: Fat Layer Exposed Amount of bleeding with debridement: Mild Bleeding Controlled with: Pressure Patient tolerated procedure: Patient tolerated procedure well Assessment/Plan Active Problems Ulcer of right lower extremity with fat layer exposed (Chronic) Ulcer of left lower extremity with fat layer exposed (Chronic) Chronic acquired lymphedema (Chronic) Obesity (BMI 30-39.9) (Chronic) Assessment: Nonhealing bilateral lower extremity ulcer secondary to chronic lymphedema. Plan: Continues to show good improvement. Debridement done as documented above. Procedure was well-tolerated. No new concerns today. Continue Aquacel, ABD and 3M wraps. Follow-up on Saturday for nurse visit. Continue leg elevation, exercise as tolerated and optimal diabetes control. His questions were answered and he was advised to call with any further questions or concerns. Follow-up on Saturday for nurse visit and on with me. This note was generated with [employer] dictation software. It may contain incorrect words, spelling, and punctuation that were not noted in checking the note before signing. [id number]: [id number] Hallie subq tissue 20 sq cm/< - Selective superficial debridement completed today. Add On Codes: [id number] Hallie subq tissue add-on - Additional square centimeter debrided, please refer to clinical note
[2020-02-29 16:20] VITALS: BP 136/80; PULSE 84; RESP 16; TEMP 36.9; BMI 39.2
[2020-03-03 10:31] VITALS: BP 156/84; PULSE 73; RESP 18; TEMP 37.1; BMI 39.2
--- NOTE | 2020-03-03 11:03 | PCM.WC.PN ---
(1) Chronic acquired lymphedema Status: Chronic Current Visit: Yes Code(s): I89.0 - Lymphedema, not elsewhere classified (2) Ulcer of left lower extremity with fat layer exposed Status: Chronic Current Visit: Yes Code(s): L97.922 - Non-pressure chronic ulcer of unspecified part of left lower leg with fat layer exposed (3) Ulcer of right lower extremity with fat layer exposed Status: Chronic Current Visit: Yes Code(s): L97.912 - Non-pressure chronic ulcer of unspecified part of right lower leg with fat layer exposed (4) Obesity (BMI 30-39.9) Status: Chronic Current Visit: Yes Code(s): E66.9 - Obesity, unspecified Type of Wound Date of Service: 03/03/20 Chief Complaint: Bilateral lower extremity ulcers History of Wound: Mr. Chandler is a 59-year-old who presents to the wound center due to nonhealing bilateral lower extremity ulceration. Patient states that it is chronic however has noted worsening since May. Most significant worsening has been since October. Been staying at home due to the ongoing pandemic and has not been using his compression stockings like he typically did. Has applied no dressing as well. Reports drainage. Very largely sedentary and sleeps in a recliner. History of diabetes last A1c per record was 6.9. Feels well otherwise, denies chills, fever, nausea, vomiting or change in bowel habit. Started on clindamycin by his PCP but discontinued due to diarrhea. Progress of Wound: Healed. No new concerns at this time. - Physical Exam Vital Signs Temp Pulse Resp BP 98.7 F 73 18 156/84 H 03/03/20 10:31 03/03/20 10:31 03/03/20 10:31 03/03/20 10:31 General: Alert, Oriented x3, Cooperative, No apparent distress HEENT: Atraumatic, Normocephalic Oral: Moist Mucosa Neck: Supple Lungs: Normal air movement Abdomen: Non Tender, Obese Extremities: No cyanosis, Edema Skin: Ulcer/ Wound Wound Measurements and Assessment WC - Nurse 1 - General Ulcer Measurement Start: 02/25/20 08:21 Freq: Status: Active Protocol: Activity Type Activity Date Activity User E-Sign Co-Sign Detail Recorded Client Recorded Date Recorded By Document 03/03/20 10:31 BS [id number] 03/03/20 10:49 03/03/20 10:31 Wound Center Nurse 1 [Ulcer Assessment] 2. RLE cluster -Combined with other wound No -Current Size (cm) - Length 0.4 -Current Size (cm) - Width 0.4 -Current Size (cm) - Depth 0.1 -Total Square Cm 0.16 -Granulation Quality Red -Texture (Chiquita-wound Skin Appearance) Assessed, Localized Edema ,Scarring -Moisture ([place]ita-wound Skin Appearance Assessed,Dry/ ) Scaly -Color ([place]iquita-wound Skin Appearance) Assessed, Hemosiderin Staining -Temperature ([place]iquita-wound Skin No Abnormality Appearance) (Pt Warm) -Tenderness on Palpation ([place]iquita-wound No Skin Appearance) -Ulcer Cleansing Soap and water -Foul Odor after Cleansing No -Anesthetic Used 4% Lidocaine Solution 1. LLE cluster -Combined with other wound No -Current Size (cm) - Length 0.3 -Current Size (cm) - Width 0.3 -Current Size (cm) - Depth 0.2 -Total Square Cm 0.09 -Granulation Quality Red -Texture (Chiquita-wound Skin Appearance) Assessed, Localized Edema ,Scarring -Moisture ([place]iquita-wound Skin Appearance Assessed,Dry/ ) Scaly -Color (Chiquita-wound Skin Appearance) Assessed, Hemosiderin Staining -Temperature ([place]iquita-wound Skin No Abnormality Appearance) (Pt Warm) -Tenderness on Palpation ([place]iquita-wound No Skin Appearance) -Ulcer Cleansing Soap and water -Foul Odor after Cleansing No -Anesthetic Used 4% Lidocaine Solution [Edema Assessment] -Lower Limb Edema Present Yes -Right Calf (cm) 49.0 -Point of measurement (cm from the 32.0 medial instep) -Right Ankle (cm) 30 -Point of Measurement (cm from the 4.0 medial instep) -Left Calf (cm) 46.0 -Point of measurement (cm from the 30.0 medial instep) -Left Ankle (cm) 33.0 -Point of Measurement (cm from the 4.0 medial instep) Musculoskeletal: No Muscle Wasting Neurological: Cranial nerves II-XII grossly intact Psych/Mental Status: Normal Affect Debridement Note Post-Debridement Measurements/Treatment WC - Nurse 2 - General Ulcer CM Notes Start: 02/25/20 08:21 Freq: Status: Active Protocol: Activity Type Activity Date Activity User E-Sign Co-Sign Detail Recorded Client Recorded Date Recorded By Document 02/25/20 08:57 MW [id number] 02/25/20 08:59 MW 02/25/20 08:57 Wound Center Nurse 2 2. RLE cluster -Time 08:58 -Correct Patient Yes -Correct Side, Site, Position Yes -Correct Procedure Yes -Procedure Performed Yes -Type of Procedure Debridement -Clinical Debridement Selective -Post Debridement Size (cm) - Length 4.0 -Post Debridement Size (cm) - Width 6.0 -Post Debridement Size (cm) - Depth 0.1 -Total Square Cm 24.00 -Wound/Ulcer Outcome Not Healed -Ulcer Cleansing Rinsed/ Irrigated with Saline -Foul Odor after Cleansing No -Bioengineered Tissue No -Bleeding Controlled with Pressure -Offloading No -Treatment Response Procedure Tolerated Well 1. LLE cluster -Time 08:59 -Correct Patient Yes -Correct Side, Site, Position Yes -Correct Procedure Yes -Procedure Performed Yes -Type of Procedure Debridement -Clinical Debridement Subcutaneous -Post Debridement Size (cm) - Length 5.0 -Post Debridement Size (cm) - Width 6.0 -Post Debridement Size (cm) - Depth 0.1 -Total Square Cm 30.00 -Wound/Ulcer Outcome Not Healed -Ulcer Cleansing Rinsed/ Irrigated with Saline -Foul Odor after Cleansing No -Bioengineered Tissue No -Bleeding Controlled with Pressure -Offloading No -Treatment Response Procedure Tolerated Well Pain Scale: 0-10 Numeric Is Patient Pain Free? Yes No debridement was completed today Assessment/Plan Active Problems Ulcer of right lower extremity with fat layer exposed (Chronic) Ulcer of left lower extremity with fat layer exposed (Chronic) Chronic acquired lymphedema (Chronic) Obesity (BMI 30-39.9) (Chronic) Assessment: Nonhealing bilateral lower extremity ulcer secondary to chronic lymphedema. Plan: Healed. No new concerns at this time. Prescription given for compression stockings. For now, double layer Tubigrip's with Devyn wrap. Very lengthy discussion had with patient on compliance with compression. Continue leg elevation, exercise as tolerated and optimal diabetes control. His questions were answered and he was advised to call with any further questions or concerns. Discharge from the wound clinic. This note was generated with [employer] dictation software. It may contain incorrect words, spelling, and punctuation that were not noted in checking the note before signing. Office Visits / Consults: [id number] L3 Est
== END 2020-03-25 23:59 ==
LOC: WC 10:30
PROVIDERS: PCP Family Medicine; Visit Provider Internal Medicine
DX: E11.621 Type 2 diabetes mellitus with foot ulcer (principal); I89.0 Lymphedema, not elsewhere classified; E66.9 Obesity, unspecified; L97.812 Non-pressure chronic ulcer of other part of right lower leg with fat layer exposed; L97.822 Non-pressure chronic ulcer of other part of left lower leg with fat layer exposed
CPT/HCPCS: 29581; 97597; 97598; 99213; G0463